=== PATIENT | male | born 1950 | race Caucasian/White ===

== ENCOUNTER → 2016-06-30 | Outpatient (CLI) | payer BC ==
[~2016-06-30] MED LIST: AMT25 PO; ANDG TOP; ASPI-232 PO; ATOR80TA PO; B-COTAB53 PO; CHOL20009 PO; COENCAP8 PO; DESO0.0516 TOP; DICL1GEL28 TD; GREEN TEA PO; INSPMPHMLG; LEVO1CAP6 PO; LISI-461 PO; MULT-884 PO; NXM/40 PO; OMEG10007 PO; SILD100T PO; [UNRECOGNIZED DRUG - CODE] PO; [UNRECOGNIZED DRUG - CODE] PO
[2016-06-30 15:45] LABS: ALT/SGPT 37 U/L (12-78); BLOOD UREA NITROGEN 18 mg/dl (7-18); BUN/CREATININE RATIO 13.5 (10-20); CALCIUM 8.9 mg/dl (8.5-10.1); CARBON DIOXIDE 28 mmol/L (21-32); CHLORIDE 105 mmol/L (98-107); GLUCOSE 79 mg/dl (70-99); POTASSIUM 3.9 mmol/L (3.5-5.1); SODIUM 141 mmol/L (136-145)
[2016-06-30 15:50] LABS: ALB/GLOB RATIO 1.2 (0.9-2); ALKALINE PHOSPHATASE 60 U/L (45-117); AST/SGOT 25 U/L (15-37)
[2016-07-01 06:24] LABS: ESTIMATED AVERAGE GLUCOSE 160 mg/dl; HA1C FLAG Normal (Normal)
--- NOTE | 2016-07-05 12:18 | CODING QUERY MEDICAL NECESSITY ---
SUPPORTING DIAGNOSIS NEEDED A supporting diagnosis is required for the test/procedure performed on this patient in order for us to be reimbursed by the patient's insurance. Please provide a supporting diagnosis for the following test/procedure listed below next to the test name along with your signature. *If there is no additional diagnosis for this patient that would support the following test/procedure please document that below next to the test/procedure. Test(s)/Procedure(s) that require a supporting diagnosis: * PSA DIAGNOSIS: * DOS: 06/30/16 Provider Signature: Date: Thank you Zully Rowe [employer] Once completed, please kindly fax back to [phone] For questions please call [phone]
== END | disposition home or self-care (01) ==
LOC: C.LAB1850 14:21
PROVIDERS: ATTEND Internal Medicine
DX: E29.1 Testicular hypofunction (principal); E10.65 Type 1 diabetes mellitus with hyperglycemia; E55.9 Vitamin D deficiency, unspecified; I10 Essential (primary) hypertension; N40.0 Benign prostatic hyperplasia without lower urinary tract symptoms

== ENCOUNTER → 2016-12-29 | Outpatient (CLI) | payer BC ==
[2016-12-29 15:54] LABS: BASO % 0.8 %; BASO ABS # 0.09 K/uL (0-0.2); COMPLETE YES; EOS % 2.4 %; HEMATOCRIT 41.4 % (42-52); IG% 0.2 %; LYMPH % 25.4 %; LYMPH ABS # 2.99 K/uL (1.2-3.4); MEAN CELL VOLUME 88.8 fL (80-100); MEAN CORPUSCULAR HGB CONC 33.8 g/dl (32-36); MEAN PLATELET VOLUME 10.3 fL (7.4-10.4); MONO % 7.7 %; NEUT % 63.5 %; PLATELET COUNT 240 K/uL (130-400); RED BLOOD COUNT 4.66 M/uL (4.7-6.1); WHITE BLOOD COUNT 11.75 K/uL (4.8-10.8)
[2016-12-29 16:32] LABS: ALT/SGPT 38 U/L (12-78); AST/SGOT 29 U/L (15-37); BLOOD UREA NITROGEN 23 mg/dl (7-18); BUN/CREATININE RATIO 16.1 (10-20); CARBON DIOXIDE 24 mmol/L (21-32); CHLORIDE 106 mmol/L (98-107); CHOLESTEROL 176 mg/dl (0-200); GLUCOSE 141 mg/dl (70-99); SODIUM 137 mmol/L (136-145)
[2016-12-29 16:42] LABS: ALB/GLOB RATIO 1.2 (0.9-2); ALKALINE PHOSPHATASE 57 U/L (45-117); CHOLESTEROL/HDL RATIO 3.7; HDL CHOLESTEROL 47 mg/dl; HEPATITIS B AB NEG; LDL CHOLESTEROL CALCULATED 98 mg/dl; TRIGLYCERIDES 157 mg/dl (0-150); VERY LOW DENSITY LIPOPROT CALC 31 mg/dl
[2016-12-29 18:01] LABS: RATIO 16.9 mcg/mg (0-30.0)
[2016-12-30 07:36] LABS: ESTIMATED AVERAGE GLUCOSE 183 mg/dl; HA1C FLAG Normal (Normal)
== END | disposition home or self-care (01) ==
LOC: C.LAB1850 15:00
PROVIDERS: ATTEND Nurse Practitioner Adult Health
DX: Z11.59 Encounter for screening for other viral diseases (principal); E10.49 Type 1 diabetes mellitus with other diabetic neurological complication; E78.5 Hyperlipidemia, unspecified

== ENCOUNTER → 2017-01-26 | Day surgery (SDC) | payer BC ==
[2017-01-14 08:06] VITALS: Ht 195.6 cm; Wt 115.0 kg
[~2017-01-26] VITALS: Ht 195.6 cm; Wt 115.0 kg
[~2017-01-26] MED LIST changes: +LIDOCAINE HCL 2% 2 ML VIAL (20MG/ML) ONE; +PROPOFOL IV EMULSION 10 MG/ML 20 ML VIAL IV ONE; +SODIUM CHLORIDE 0.9% 500ML 500 ML IV ONE
[2017-01-26 08:20] VITALS: TEMP 36.2
--- NOTE | 2017-01-26 08:27 | Endo History and Physical ---
History & Physical Date of Service: Jan 26, 2017. Chief Complaint: screening Referring Physician: Dr. Moctezuma History of Present Illness 66 yo CM who presents for screening colonoscopy. Past Medical History Diabetes, Reflux, High Cholesterol, Hypertension Past Surgical History Hx Cardiac Surgery: No Hx Internal Defibrillator: No Hx Pacemaker: No Hx Abdominal Surgery: No Hx of Implantable Prosthesis: No Hx Post-Op Nausea and Vomiting: No Hx Cancer Surgery: No Hx Thoracic Surgery: No Hx Orthopedic: Yes (RT KNEE SCOPE) Hx Urinary Tract Surgery: No Family History None Social History Smoking Status: Former Smoker Hx Substance Use: No Hx Alcohol Use: Yes (OCCASIONAL) Allergies Coded Allergies: No Known Allergies (Verified , 01/26/17) Current Medications Reported Home Medications Medications Dose Route/Sig Max Daily Dose Days Date Category Insulin Humalog Pump (Insulin Human Lispro) Pump 1 Ea N/A UD 01/14/16 Reported [Green Tea ] 1 Cap PO QAM 11/25/14 Reported Cla (Linoleic Acid-Troy Oil) 1 Cap Cap 1 Cap PO QAM 11/25/14 Reported Lisinopril 10 Mg Tab 10 Mg PO QAM 11/25/14 Reported Androgel Pump (Testosterone Propionate) 1 Box Gel 20.25 Mg TOP QAM 11/25/14 Reported Desonide 0.05 % Oin 1 Appln TOP DAILY PRN 11/25/14 Reported Voltaren 1% Top Gel (Diclofenac Sodium) Gel 1 Appln TD BID PRN 11/25/14 Reported Viagra (Sildenafil Citrate) 100 Mg Tab 100 Mg PO PRN 11/25/14 Reported Effie-3 (Fish Oil) 1 Ea Cap 1,000 Mg PO BID 11/25/14 Reported Lipitor (Atorvastatin Calcium) 80 Mg Tab 1 Tab PO HS 11/25/14 Reported Vitamin D (Cholecalciferol) 2,000 Unit Tab 2,000 Unit PO QAM 11/25/14 Reported Multi Vitamin Daily (Multiple Vitamin) 1 Tab Tab 1 Tab PO QAM 11/25/14 Reported L-Carnitine (Levocarnitine L-Tartrate) 500 Mg Cap 1 Tab PO QAM 11/25/14 Reported Coenzyme Q10 (Coenzyme D05-Jfvmapr E) 1 Cap Cap 1 Cap PO QAM 11/25/14 Reported Chromium Picolinate Forti (Misc Natural Products) 1 Tab Tab 1 Cap PO QAM 11/25/14 Reported B Complex (B-Complex W/ Folic Acid) 1 Tab Tab 1 Tab PO QAM 11/25/14 Reported Aspir-81 (Aspirin) 81 Mg Tab 1 Tab PO QAM 11/25/14 Reported Amitriptyline HCl 25 Mg Tab 25 Mg PO HS PRN 11/25/14 Reported Nexium (Esomeprazole Magnesium) 40 Mg Capcr 40 Mg PO QAM 11/25/14 Reported Vital Signs Weight (Kilograms): 115 Height (Feet): 6 Height (Inches): 5 Date Time Temp Pulse Resp B/P (MAP) Pulse Ox O2 Delivery O2 Flow Rate FiO2 01/26/17 08:20 36.2 83 20 143/63 (89) 97 Room Air Physical Exam General Appearance: WD/WN, no apparent distress Respiratory/Chest: Auscultation: breath sounds normal Cardiovascular: Heart Auscultation: RRR Abdomen: Bowel Sounds: normal Inspection & Palpation: soft, non-distended, no tenderness, guarding & rebound Assessment and Plan Assessment: 66 yo CM who presents for screening colonoscopy. Plan: Proceed with colonoscopy.
--- NOTE | 2017-01-26 08:56 | Discharge Instructions ---
Endoscopy Patient Instructions Date / Procedure(s) Performed Jan 26, 2017. Colonoscopy Allergy Information Coded Allergies: No Known Allergies (Verified , 01/26/17) Discharge Date / Findings Jan 26, 2017. Colon polyps Diverticulosis Internal hemorrhoids Medication Instructions Stopped Medication(s): took ASA yesterday OK to resume all medications today as prescribed Provider Instructions Activity Restrictions - No exercising or heavy lifting for 24 hours. - Do not drink alcohol the day of the procedure. - Do not drive a car or operate machinery until the day after the procedure. - Do not make any important decisions or sign important papers in 24 hours after the procedure. Following Day: - Return to full activity which may include returning to work/school. Diet Start your diet with liquids and light foods (jello, soup, juice, toast). Then eat your usual diet if not nauseated. Treatment For Common After Affects For mild abdominal pain, bloating, or excessive gas: - Rest - Eat lightly - Lie on right side Follow-Up Information Follow-up with Dr. Moctezuma as scheduled Anesthesia Information What You Should Know You have had a procedure that required some medicine to reduce anxiety and discomfort. This treatment is called moderate sedation. After receiving the treatment, you may be sleepy, but you will be able to breathe on your own. The effects of the treatment may last for several hours. Follow these instructions along with Activity/Diet recommendations noted above: * Do NOT do anything where dizziness or clumsiness would be dangerous. * Rest quietly at home today, then you can be up and about tomorrow. * Have a responsible person stay with you the rest of today. * You may have had an I.V. today. If so, you may take the dressing off later today. Recommendations Call your doctor if: * Trouble breathing * Continuous vomiting for more than 24 hours * Temperature above 101 degrees * Severe abdominal pain or bloating * Pain not relieved by pain medicine ordered * There is increased drainage or redness from any incision * A large amount of rectal bleeding greater than 2-3 tablespoons. (If you had a polyp/s removed or have hemorrhoids, a small amount of blood - from the rectum is to be expected.) * You have any unanswered questions or concerns. IN THE EVENT OF A SERIOUS EMERGENCY, GO TO THE NEAREST EMERGENCY ROOM Your discharge instructions were prepared by provider Florentin Franco. Patient Instructions Signature Page Angel Douglas Patient (or Guardian) Signature/Date: I have read and understand the instructions given to me by my caregivers. Caregiver/RN/Doctor Signature/Date: The above-named patient and/or guardian has received patient instructions on this date. + Original Patient Signature Page (only) stays with chart. Please make copy for patient.
--- NOTE | 2017-01-26 09:04 | GI REPORT ---
Procedure Date: 01/26/2017 8:30 AM Procedure: Colonoscopy Indications: Screening for colorectal malignant neoplasm Medicines: Monitored Anesthesia Care Complications: No immediate complications. Estimated Blood Loss: Estimated blood loss: none. Procedure: Pre-Anesthesia Assessment: - Prior to the procedure, a History and Physical was performed, and patient medications and allergies were reviewed. The patient's tolerance of previous anesthesia was also reviewed. The risks and benefits of the procedure and the sedation options and risks were discussed with the patient. All questions were answered, and informed consent was obtained. Prior Anticoagulants: The patient has taken aspirin, last dose was 1 day prior to procedure. ASA Grade Assessment: II - A patient with mild systemic disease. After reviewing the risks and benefits, the patient was deemed in satisfactory condition to undergo the procedure. After I obtained informed consent, the scope was passed under direct vision. Throughout the procedure, the patient's blood pressure, pulse, and oxygen saturations were monitored continuously. The On-site loaner was introduced through the anus and advanced to the terminal ileum. The colonoscopy was performed without difficulty. The patient tolerated the procedure well. The quality of the bowel preparation was good. The terminal ileum, ileocecal valve, appendiceal orifice, and rectum were photographed. Findings: Two sessile polyps were found in the sigmoid colon and in the transverse colon. The polyps were 4 to 6 mm in size. These polyps were removed with a cold snare. Resection and retrieval were complete. Multiple small-mouthed diverticula were found in the sigmoid colon. Non-bleeding internal hemorrhoids were found during retroflexion. The hemorrhoids were small. Impression: - Two 4 to 6 mm polyps in the sigmoid colon and in the transverse colon, removed with a cold snare. Resected and retrieved. - Diverticulosis in the sigmoid colon. - Non-bleeding internal hemorrhoids. Recommendation: - Resume previous diet. - Continue present medications. - Repeat colonoscopy for surveillance based on pathology results. - Return to primary care physician as previously scheduled. Florentin Franco, 01/26/2017 9:03:56 AM This report has been signed electronically. Note Initiated On: 01/26/2017 8:30 AM I attest to the content of the Intraoperative Record and orders documented therein, exceptions below
--- NOTE | 2017-01-26 09:12 | Anesthesiology Progress Note ---
Anesthesia Post Op Note Date & Time Jan 26, 2017 at 09:12 Vital Signs Pain Intensity: 0 Vital Signs Past 12 Hours Date Time Temp Pulse Resp B/P (MAP) Pulse Ox O2 Delivery O2 Flow Rate FiO2 01/26/17 09:05 82 24 99/64 (76) 97 Room Air 01/26/17 08:20 36.2 83 20 143/63 (89) 97 Room Air Notes Mental Status: alert / awake / arousable, participated in evaluation Pt Amnestic to Procedure: Yes Nausea / Vomiting: adequately controlled Pain: adequately controlled Airway Patency, RR, SpO2: stable & adequate BP & HR: stable & adequate Hydration State: stable & adequate Anesthetic Complications: no major complications apparent
[2017-01-26 09:31] VITALS: BP 116/77; PULSE 74; O2SAT 97
== END | disposition home or self-care (01) ==
LOC: C.GI 07:56
PROVIDERS: ATTEND Internal Medicine
DX: Z12.11 Encounter for screening for malignant neoplasm of colon (principal); D12.5 Benign neoplasm of sigmoid colon; D12.3 Benign neoplasm of transverse colon; K57.31 Diverticulosis of large intestine without perforation or abscess with bleeding; K64.8 Other hemorrhoids; E11.9 Type 2 diabetes mellitus without complications; K21.9 Gastro-esophageal reflux disease without esophagitis; E78.00 Pure hypercholesterolemia, unspecified; I10 Essential (primary) hypertension; Z87.891 Personal history of nicotine dependence; Z79.4 Long term (current) use of insulin

== ENCOUNTER → 2017-05-31 | Outpatient (CLI) | payer BC ==
[~2017-05-31] MED LIST changes: -LIDOCAINE HCL 2% 2 ML VIAL (20MG/ML) ONE; -PROPOFOL IV EMULSION 10 MG/ML 20 ML VIAL IV ONE; -SODIUM CHLORIDE 0.9% 500ML 500 ML IV ONE
[2017-05-31 12:12] LABS: BASO % 0.9 %; BASO ABS # 0.07 K/uL (0-0.2); EOS % 4.9 %; EOS ABS # 0.37 K/uL (0-0.5); HEMATOCRIT 42.2 % (42-52); HEMOGLOBIN 14.4 g/dL (14.0-18.0); IG# 0.01 K/uL (0.00-0.02); LYMPH % 42.4 %; LYMPH ABS # 3.18 K/uL (1.2-3.4); MEAN CELL VOLUME 90.2 fL (80-100); MEAN CORPUSCULAR HEMOGLOBIN 30.8 pg (25-34); MEAN CORPUSCULAR HGB CONC 34.1 g/dl (32-36); MEAN PLATELET VOLUME 10.2 fL (7.4-10.4); MONO % 7.9 %; MONO ABS # 0.59 K/uL (0.11-0.59); NEUT % 43.8 %; NEUT ABS # 3.28 K/uL (1.4-6.5); PLATELET COUNT 244 K/uL (130-400); RED CELL DISTRIBUTION WIDTH CV 12.8 % (11.5-14.5); RED CELL DISTRIBUTION WIDTH SD 41.6 fL (36.4-46.3)
[2017-05-31 12:26] LABS: HEMOGLOBIN A1C 7.6 % (4.5-5.6)
== END | disposition home or self-care (01) ==
LOC: C.LAB1850 11:24
PROVIDERS: ATTEND Urology
DX: Z12.5 Encounter for screening for malignant neoplasm of prostate (principal); D72.829 Elevated white blood cell count, unspecified; B19.10 Unspecified viral hepatitis B without hepatic coma; E78.5 Hyperlipidemia, unspecified; E10.49 Type 1 diabetes mellitus with other diabetic neurological complication; N52.9 Male erectile dysfunction, unspecified

== ENCOUNTER 2022-08-24 11:24 | Observation (INO) ==
--- NOTE | 2022-08-18 14:46 | Communication Note ---
Patient scheduled for Left Knee Open Quadricep Tendon Repair 08/24/[address] Kraft at [facility]. Received message from Reno Ardon (surgeon's office specialist) that patient unable to be seen at PAT due to transportation limitations in setting of injury/need for medical transport van at this time. She requests that after PAT RN phone interview and preop testing completed, we contact the patient to review any perioperative questions he might still have (regarding anesthesia/medication instructions) and if we feel anything further needed (i.e. clearances) from our perspective. Once chart formally reviewed preoperatively by PAT provider, will have patient contacted to discuss the above as per surgeon's office request.
--- NOTE | 2022-08-19 15:30 | Anesthesiology Consultation ---
Date of Service August 19, 2022 Assessment & Plan (1) Encounter for pre-operative examination: Chart Review Chart Review: Acceptable Risk for Surgery and Patient NOT seen in Pre Admission Testing - Check BSG AM DOS Pt requiring admission post operatively. Plan for recheck with COVID Garrett AM DOS due to possibility that patient may have a roommate. OR aware. Garrett order placed Per surgeon workload note 08/20/22= "Patient is best treated for this acute injury by 6 weeks, or the quad tendon retracts and compromises outcome. Should avoid extraordinary delays for exacerbations of chronic medical issues unless unsafe to proceed." -COVID screening: Per PAT nursing assessment on 08/19/22. Pt returned from [place] 08/12/22 (flew). No known COVID-19 positive contacts or current COVID-19 related symptoms. Travel screen negative. Patient vaccinated for Covid. At surgeon discretion if preop Covid testing being done. Pt last seen by PCP 08/23/22 (workload note sent re: Hgb A1C and elevated creat)= seen for preop clearance. Fell in [place] 07/25/22 and injured leg. Dx'ed with a ruptured quad tendon of the left knee and is scheduled for surgery on 08/24/2022. "Revised cardiac risk gzime-nlb-jodnm-class II risk. Consult endocrinology for instructions in regard to insulin pump. Patient is cleared for surgery." (Spoke with patient on 08/23/22- he followed up with endocrinology- plan is for patient to set his insulin pump at half of his basal rate during the fasting period prior to surgery) Pt seen by PCP 08/16/22= Lichen planus- continue with derm. Planter fasciitisdefers further treatment at this time. Type 1 diabeteson insulin pump. Continue to follow with endocrinology. GERD/Parker's esophagus EGD 2020- repeat in three years. EDtemporary. Managed by urology. Hypertension. Fast heart rateunclear reason. Currently asymptomatic. Cardiology evaluation. Lymphadenopathy/leukocytosisstable since exam November 2013. HLDon statin. Peripheral neuropathyon Cymbalta. CKDlikely secondary to diabetes and hypertensioncreatinine up to 1.6 in April. Nephrology evaluation due to CKD. Vitamin D deficiency on supplement. Right knee pain and instability. Follow-up with Ortho Seen by cardio 03/08/22= Patient seen for cardiology follow-up. Asymptomatic sinus tachycardia. No obvious etiology for this. Recent echocardiogram reviewed. Stress test without evidence of myocardial ischemia. Recent carotid and abdominal ultrasounds were unremarkable. Minimal stenosis of right external iliac artery. MICHAEL and TBI both legs normal. No evidence of arterial obstructive disease in his legs. BP adequately controlled. Dyslipidemiaon statin. No symptoms of any significant arrhythmia. No evidence of arrhythmia on recent stress test. We will start metoprolol ER 25 mgpatient tolerates low- dose well and his heart rate remains elevated would further increase that to 50 mg daily. Follow-up in 6 months History Surgery Operation Date: 08/24/22 13:30 Proposed Procedures p Left Knee Open Quadricep Tendon Repair - Rashad Kraft MD Height/Weight Height: 6 ft 5 in Weight: 117.027 kg Allergies Allergy/AdvReac Type Severity Reaction Status Date / Time No Known Allergies Allergy Verified 08/23/22 09:47 Medications Home Medications Medication Instructions Recorded Confirmed Last Taken aspirin 81 mg tablet,delayed 81 mg PO QAM 04/11/18 08/23/22 01/31/22 release cholecalciferol (vitamin D3) 50 2,000 unit PO QAM 04/11/18 08/23/22 01/31/22 mcg (2,000 unit) tablet (Vitamin D3) chromium picolinate 200 mcg tablet 200 mcg PO QAM 04/11/18 08/23/22 01/31/22 coenzyme Q10 100 mg capsule 100 mg PO QAM 04/11/18 08/23/22 01/31/22 desonide 0.05 % topical cream 1 applic topical BID PRN Rash 04/11/18 08/23/22 04/12/18 green tea leaf extract (Green Tea 1 cap PO QAM 04/11/18 08/23/22 01/31/22 capsule) insulin glargine 100 unit/mL 50 units subcut UD PRN in the 04/11/18 08/23/22 2 Years Ago subcutaneous solution (Lantus event of pump failure ~04/19/16 U-100 Insulin) levocarnitine 500 mg tablet 500 mg PO QAM 04/11/18 08/23/22 01/31/22 (L-Carnitine) multivitamin 1 tab PO QAM 04/11/18 08/23/22 01/31/22 safflower oil-linoleic acid, 1 cap PO QAM 04/11/18 08/23/22 01/31/22 conjugated 1,000 mg capsule linoleic acid, conjugated 600 mg 1 cap PO QAM 11/02/18 08/23/22 01/31/22 capsule vitamin B complex (B Complex 1 1 tab PO QAM 01/01/19 08/23/22 01/31/22 tablet) cyclobenzaprine 5 mg tablet 5 mg PO HS PRN muscle spasm #20 01/02/19 08/23/22 04/06/21 tabs omega 0-zeh-wyx-fish oil 1,000 mg 1 cap PO BID 02/13/19 08/23/22 01/31/22 (120 mg-180 mg) capsule (Fish Oil) insulin syringe-needle U-100 0.3 #10 ea 06/05/19 08/23/22 Unknown mL 30 gauge x 1/2" (BD Insulin Syringe Ultra-Fine) flash glucose scanning reader 06/02/21 08/23/22 Unknown (FreeStyle Tariq [employer]) flash glucose sensor (FreeStyle 06/02/21 08/23/22 Unknown Tariq 14 Day Sensor kit) sildenafil (pulm.hypertension) 20 20 - 100 mg PO ONCE PRN sexual 08/06/21 08/23/22 01/27/22 mg tablet activity #60 tabs rosuvastatin 40 mg tablet 40 mg PO QAM 90 days #90 tabs 11/12/21 08/23/22 01/31/22 lisinopril 20 mg tablet 20 mg PO QAM #90 tabs 03/29/22 08/23/22 Unknown Humalog U-100 Insulin 100 unit/mL See Rx Instructions .Route 04/21/22 08/23/22 Unknown subcutaneous solution (insulin .COMPLEX #170 mL lispro) esomeprazole magnesium 40 mg 40 mg PO BID #180 caps 05/05/22 08/23/22 Unknown capsule,delayed release tramadol 50 mg tablet 50 mg PO BID PRN pain #60 tabs 07/30/22 08/23/22 Unknown Wheeled Walker #1 ea 08/18/22 08/23/22 Unknown duloxetine 60 mg capsule,delayed 60 mg PO HS 08/19/22 08/23/22 Unknown release metoprolol succinate 25 mg 25 mg PO QPM 08/19/22 08/23/22 Unknown tablet,extended release 24 hr Past Medical History Medical History Barretts esophagus Repeat EGD due 2023 per records Benign prostate hyperplasia Diabetes mellitus type [address]; follows with Leila Payton Diabetic peripheral neuropathy Effusion, right knee GERD (gastroesophageal reflux disease) Hyperlipidemia Hypertension Insulin pump in place Knee pain, right Lumbar radiculopathy Medical marijuana use Polyneuropathy Right shoulder injury Right upper limb pain Rupture of left quadriceps muscle Stage 3a chronic kidney disease Strain of flexor tendon of wrist Uncontrolled type 1 diabetes mellitus with neurologic complication, with long- term current use of insulin Uncontrolled type 1 diabetes mellitus with retinopathy, with long-term current use of insulin Past Family History Family History Mother Family history of reaction to anesthesia nausea/vomiting and disoriented after anesthesia Grandfather (Paternal) Myocardial infarction Father COPD (chronic obstructive pulmonary disease) Glaucoma Grandfather (Maternal) Diabetes Denies family history of Ovarian cancer Prostate cancer Breast cancer Lung cancer Colorectal cancer Stroke Past Surgical History Surgical History History of bilateral cataract extraction History of colonoscopy last 01/2022 @ [facility] History of esophagogastroduodenoscopy (EGD) History of oral surgery dental implants Hx of arthroscopy of right knee Social History Smoking Status: Current some day smoker tobacco type: cigars Smoking cigarettes per day: smokes cigars intermittently Do You Dip or Chew Tobacco: No Smoking End Date: quit cigarettes 15 years ago Hx Alcohol Use: Yes Alcohol type: beer alcohol intake frequency: a few times a week Hx Substance Use: Yes (medical marijuana) substance use type: marijuana Last Used Substance: Unknown Last Used Substance Other:: pt states been 6 wks since used last Lab Results Anesthesia Preop Results Results Anesthesia Widget: WBC 13.07 K/ul (4.8-10.8) H 08/18/22 Hgb 13.6 g/dl (14.0-18.0) L 08/18/22 Hct 40.0 % (42.0-52.0) L 08/18/22 Plt 366 K/uL (130-400) 08/18/22 Na 137 mmol/L (136-145) 08/18/22 K 4.3 mmol/L (3.5-5.1) 08/18/22 Cl 104 mmol/L (98-107) 08/18/22 CO2 25 mmol/L (21-32) 08/18/22 BUN 33 mg/dl (6-23) H 08/18/22 Creat 1.72 mg/dl (0.6-1.4) H 08/18/22 Glucose Level 123 mg/dl (70-99(Fasting)) H 08/18/22 HA1c 8.0 % (4.5-5.6) H 08/18/22 Testing Laboratory Results Mild leukocytosis- surgeon's office made aware Elevated creatinine - sent workload message to PCP Electrocardiogram Date: 08/18/22 Findings: + NSR @ (94bpm ) Normal EKG per cardio Chest X-Ray Date: 08/18/22 FINDINGS: Suspected mild lung hyperexpansion. Lungs are clear. There is no pneumothorax or pleural effusion. Cardiac size is normal. Mediastinal contours are normal. There is no evidence for pulmonary edema. Old left-sided rib fractures are incidentally noted. IMPRESSION: No acute cardiopulmonary findings. Echocardiogram Date: 03/08/22 EF: 65-70% LV Function: normal RWMA: + none Other Findings: + LVH (mild/concentric ) and + diastolic dysfunction (Grade I ) Valvular Disease: + no significant valvular disease No significant change from ECHO 04/08/21 Stress Test Date: 03/10/22 Type: exercise Conclusions: 1. Maximum exercise stress test negative for chest pain. 2. Normal hemodynamic response to exercise. 3. Normal ECG response to exercise. No ECG evidence of stress-induced myocardial ischemia. 4. No exercise-induced arrhythmia. Other Testing Carotid duplex 02/18/22= No evidence of plaque or elevated velocities in the right and left internal carotid arteries. Antegrade flow bilateral vertebral arteries. Aorto iliac arterial duplex 02/18/2022 = no evidence of aortoiliac aneurysm. 30- 49% stenosis in right proximal EIA. Lower arterial duplex 02/18/2022 = no evidence of significant lower extremity arterial occlusive disease bilaterally
[~2022-08-24 11:24] MED LIST changes: -AMT25 PO; -ANDG TOP; -ASPI-232 PO; -ATOR80TA PO; -B-COTAB53 PO; -CHOL20009 PO; -COENCAP8 PO; -DESO0.0516 TOP; -DICL1GEL28 TD; -GREEN TEA PO; -INSPMPHMLG; -LEVO1CAP6 PO; -LISI-461 PO; +LR 15ML/HR IV SCH; +LR 60ML/HR IV SCH; -MULT-884 PO; -NXM/40 PO; -OMEG10007 PO; -SILD100T PO; -[UNRECOGNIZED DRUG - CODE] PO; -[UNRECOGNIZED DRUG - CODE] PO; +ceFAZolin 2000MG 2,000 MG/15 ML SYR IV SCH
[2022-08-24] MEDS ORDERED: BUPIVACAINE/EPINEPHRINE 0.25% 1:200,000 30 ML VIAL ONE (11:52)
[2022-08-24] MEDS ORDERED: ROPIVACAINE 0.5% 5 MG/ML 30 ML VIAL ONE (12:17)
[2022-08-24] MEDS ORDERED: fentaNYL citrate PF 100 MCG/2 ML VIAL ONE ×4 (13:15→18:08)
[2022-08-24] MEDS ORDERED: PROPOFOL IV EMULSION 10 MG/ML 20 ML VIAL IV ONE (13:15)
[2022-08-24] MEDS ORDERED: LIDOCAINE 2% 2 ML VIAL/AMP(20MG/ML) INFIL ONE (13:15)
[2022-08-24] MEDS ORDERED: MIDAZOLAM HCL 1 MG/ML 2ML VIAL ONE (13:15)
[2022-08-24] MEDS ORDERED: ROCURONIUM BROMIDE 10 MG/ML 5 ML VIAL IV ONE (14:26)
--- NOTE | 2022-08-24 14:26 | History & Physical Bridge Note ---
Date of Service August 24, 2022 History & Physical Bridge Note I have examined the patient, reviewed the History & Physical and in the interval since the performance of the History & Physical I have noted the following changes of clinical significance: no changes noted
[2022-08-24] MEDS ORDERED: HYDROmorphone INJ 2 MG/ML SYR/VIAL ONE ×2 (15:42→16:27)
[2022-08-24] MEDS ORDERED: ePHEDrine sulfate 50 MG/ML AMP ONE (15:47)
[2022-08-24] MEDS ORDERED: ONDANSETRON INJ 2 MG/ML 2 ML VIAL ONE (17:18)
--- NOTE | 2022-08-24 18:04 | Post Operative Brief Note ---
PG Immediate Post Op with CF Date of Surgery August 24, 2022 Pre & Post Diagnosis Operation Date: 08/24/22 13:30 Pre-Op Diagnosis: Rupture of Left Quadriceps Muscle Post-Op Diagnosis: Rupture of Left Quadriceps Muscle I identified the patient and participated in the time-out.: Yes Procedure Operation Date: 08/24/22 13:30 Actual Procedures p Left Knee Open Quadricep Tendon Repair(Left) - Rashad Kraft MD Surgeon Rashad Kraft MD Teleradiologist NONE Estimated Blood Loss 20 Findings Consistent with Post-Op Diagnosis
[2022-08-24] MEDS ORDERED: ePHEDrine sulfate 50 MG/ML AMP IV PRN (18:07)
[2022-08-24] MEDS ORDERED: ONDANSETRON INJ 2 MG/ML 2 ML VIAL IV PRN ×2 (18:07→18:35)
[2022-08-24] MEDS ORDERED: ATROPINE SULFATE 0.1 MG/ML 10ML SYR IV PRN (18:07)
[2022-08-24] MEDS: fentaNYL citrate PF 100 MCG/2 ML VIAL IV PRN ×4 (18:09→18:32)
--- NOTE | 2022-08-24 18:16 | Fluoroscopy Report ---
FL knee LT 1 or 2V CLINICAL HISTORY: LEFT KNEEstatus post surgery of the left knee COMPARISON STUDY: Head CT 07/26/2022 FLUOROSCOPY TIME: 5.4 seconds. FLUOROSCOPY IMAGES: 2 EXPOSURE DOSE: 0.29 mGy FINDINGS: There are 3 linear surgical device is projected over the long axis of the patella. Expected postoperative soft tissue swelling with deep tissue air. No acute fracture or unexpected opaque fore ign body identified. IMPRESSION: Fluoroscopic assistance as above. ACT 112: Negative or not required by law. Electronically signed by: Peterson Oliva M.D. 08/24/2022 6:15 PM
[2022-08-24] MEDS ORDERED: oxyCODONE HCL IR 5 MG TAB (IMMEDIATE RELEASE) PO PRN (18:35)
[2022-08-24] MEDS ORDERED: DESONIDE CR 15 GM TUBE EXT PRN (18:35)
[2022-08-24] MEDS ORDERED: ALUMINUM/MAGNESIUM SUSP 30 ML UDC PO PRN (18:35)
[2022-08-24] MEDS ORDERED: diphenhydrAMINE 50 MG/ML VIAL IV PRN (18:35)
[2022-08-24] MEDS ORDERED: HYDROmorphone INJ 0.5 MG/0.5 ML SYR IV PRN (18:35)
[2022-08-24] MEDS ORDERED: diphenhydrAMINE Capsule 25 MG CAP PO PRN (18:35)
[2022-08-24] MEDS ORDERED: MAGNESIUM HYDROXIDE SUSP 30 ML UDC PO PRN (18:35)
[2022-08-24] MEDS ORDERED: PHARMACY GLYCEMIC MGMT CONSULT PRN (18:35)
[2022-08-24] MEDS ORDERED: LANTUS PER UNIT CHARGE SQ PRN (18:35)
[2022-08-24] MEDS: HYDROmorphone INJ 1 MG/ML SYRINGE IV PRN ×2 (18:43→18:51)
[2022-08-24] MEDS ORDERED: HYDROmorphone INJ 1 MG/ML SYRINGE ONE (18:43)
--- NOTE | 2022-08-24 19:04 | Anesthesiology Progress Note ---
Date of Service August 24, 2022 Anesthesia Post Procedure Vital Signs Vital Signs: Temp Pulse Resp BP Pulse Ox O2 Del Method O2 Flow Rate 08/24/22 19:00 98 H 12 114/73 98 Room Air 08/24/22 18:50 100 H 12 116/79 93 Room Air 08/24/22 18:40 102 H 16 127/76 96 Room Air 08/24/22 18:30 97.2 F L 100 H 14 147/74 H 96 Room Air 08/24/22 18:10 106 H 12 114/77 99 Oxymask 6 08/24/22 18:20 103 H 18 129/81 96 Oxymask 3 08/24/22 18:00 105 H 12 127/77 98 Oxymask 6 08/24/22 17:50 102 H 16 126/72 100 Oxymask 6 08/24/22 17:43 97.2 F L 104 H 9 L 105/63 100 Oxymask 6 08/24/22 12:26 97.7 F 90 20 114/78 99 Room Air Pain Intensity Left Knee: Pain Intensity: 4 Transfer of Care Handoff Completed per policy Notes Mental Status: alert / awake / arousable and participated in evaluation Patient Amnestic to Procedure: Yes Nausea / Vomiting: adequately controlled Pain: adequately controlled and improving with treatment Airway Patency, RR, SpO2: stable & adequate BP & HR: stable & adequate Hydration State: stable & adequate Anesthetic Complications: no major complications apparent and Pt Satisfied with anesthetic care
[2022-08-24] MEDS ORDERED: DEXTROSE 50% 50 ML SYRINGE IV PRN (20:00)
[2022-08-24] MEDS ORDERED: GLUCOSE 10 TAB/TUBE PO PRN (20:00)
[2022-08-24] MEDS ORDERED: GLUCAGON FOR INJ 1 MG VIAL IM PRN (20:00)
[2022-08-24] MEDS ORDERED: CARBOHYDRATES FOR HYPOGLYCEMIA PO PRN (20:00)
[2022-08-24] MEDS ORDERED: GLUCOSE 40% GEL 15 GM TUBE PO PRN (20:00)
--- NOTE | 2022-08-24 20:17 | Operative Report ---
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 Significant tendinosis throughout the quadricep tendon. Direct repair achieved with fiber tape suture through 3 linear bone tunnels in the patella. With no significant tension to about 30 degrees of knee flexion. Specimens None Anesthesia Type General Regional Complications none Disposition Accompanied Patient To Recovery: No Disposition: Recovery Room Indications 71-year-old male sustained an acute injury to his knee about 3 weeks ago down in [place]. He was treated in urgent care center made weightbearing as tolerated due to no fractures. He received care locally with some therapy until arriving back in [place] for definitive management. He presented to clinic with an obvious quadricep disruption. He was counseled on the diagnosis, prognosis, and my recommendation to proceed with direct repair soon as possible. We reviewed the risks and benefits and alternatives. He was interested in proceeding. Informed consent was documented in the clinic. Description of Procedure On the day of surgery, the patient was greeted in the preoperative holding area. The informed consent was reviewed and confirmed by myself and the patient. The patient identified the surgical site and was marked by me. The patient was then turned over to anesthesia. Anesthesia performed a regional anesthetic block with excellent effect. Patient was then taken to the operating place upon the OR table and anesthesia was in duced. The airway was secured. A nonsterile tourniquet placed high in the thigh. 3 sheets were used for an ipsilateral hip bump. The limb was then prepped and draped in usual sterile fashion for knee surgery. Surgical timeout was called by the a auxiliary nurse and verified all present. Antibiotics been infused equipment available and functional. An Esmarch bandage was used to exsanguinate the extremity, and the tourniquet was inflated to 250 mmHg for a total of 109 minutes. A midline incision over the patella was made to provide access to the quadricep tendon. We also exposed the distal pole the patella. Medial lateral skin flaps were developed and Bovie electrocautery was used for hemostasis. The peritenon was excised over the quadricep tendon and the tendon stump was debrided. The superior pole of patella or the insertion site of the quadricep tendon was debrided of all soft tissue using curette and rongeur. We thoroughly irrigated the hematoma and thoroughly irrigated the joint. The patella was then exposed using a bump underneath the knee. A central drill pin was placed using a 2 mm drill from the superior pole to the inferior pole. Using this pin as a central axis guide, two additional tunnels were made using a 2 mm drill on the medial and lateral sides. The position and trajectories were verified using fluoroscopy in the AP and lateral views. The [employer] suture passer was used to pass 0 silk suture for later shuttling of the repair stitches. The quad tendon was captured with 2 Allis clamps. And then whipstitches were performed with running locking fiber tape suture for 2 cores on the medial lateral aspect resulting in 4 fiber tape tails. The fiber tape tails were then passed down through the patella bone tunnels. The central tunnel contained the 2 medial tails. The far medial and lateral single fiber tape suture was then passed through the respective tunnels. The knee was placed in full extension and the tendon was then reduced forcefully using the tension on the fiber tape tails. A firm knot was tied after passing the tails to the medial and lateral aspect outside the patellar tendon distally. Firm knots were tied. We then thoroughly irrigated the soft tissues. #2 FiberWire suture was used on the medial and lateral retinacular repairs which extended back to the midline. Closure consisted of #1 Vicryl in the deep peritenon layer to cover the exposed tendon. Portions of the prepatellar bursa were then closed over the suture, where possible. 0 Vicryl suture was used in the deep subcuticular and fascial layers. The skin was approximated using 2-0 Vicryl. Final subcuticular closure was accomplished using wendy. The wound was dressed with the jumpstart dressing from the fiber tape kit followed by sterile gauze, ABD, and web roll. An Bret wrap was placed from toes to thigh. The limb was placed in a standard postoperative range of motion brace locked in full extension, set for a lockout of 30 degrees flexion. Patient tolerated seizure well, was extubated the operative without complication, and was transported to the PACU in stable condition. Disposition: Patient will remain in the locked range of motion brace in full extension. He can weight-bear as tolerated with his brace in place. Routine pain management will be prescribed. DVT prophylaxis will consist of early ambulation and oral aspirin 325 mg daily. He will be admitted observation until PT/OT can evaluate his ability to ambulate and perform ADLs at home. I attest to the content of the Intraoperative Record and any orders documented therein. Any exceptions are noted below.
--- NOTE | 2022-08-24 20:32 | Procedure Note ---
Procedure Note Date of Service August 24, 2022 Note Quadriceps Tendon Repair Rehabilitation Guide Phase 1 (0 6 weeks): PROTECTION PHASE WBing in full extension with brace locked. ROM: Supported Active flexion to comfortable limit, and Passive Extension only. 0-30 (week 1-2), 0-60 (week 3-4), 0-90 (week 5-6). No passive flexion, only gentle supported active flexion within limits. Straight leg raise in brace OK when comfort allows. Quad sets OK. Assist device (crutches/walker as needed) Focus on gluteal and core strength. Phase 2 (6 12 weeks): MOTION JAIN, GAIT TRAINING WBing with brace open 0 30 degrees. ROM exercises can advance in comfortable range. No passive stretch of extensor mechanism active flexion/gravity assist/heel slides. Assist device (crutches/walker as needed). Phase 3 (12+ weeks): STRENGTH JAIN Advance WBing available in available comfortable range. Brace lockout at limits if needed. Continue ROM exercises and advance as pain allows. No passive stretch of extensor mechanism active flexion/gravity assist/heel slides. Assist device (crutches/walker as needed) Coding
[2022-08-24] MEDS ORDERED: INSULIN ASPART 100 UNITS/ML VIAL SC PRN (21:00)
[2022-08-24] MEDS: ACETAMINOPHEN 500 MG TAB PO SCH (21:10)
[2022-08-24] MEDS: oxyCODONE HCL IR 5 MG TAB (IMMEDIATE RELEASE) PO PRN (21:11)
[2022-08-24] MEDS: OMEGA-3 (PURIFIED FISH OIL) 1 GM CAP PO SCH (21:12)
[2022-08-24] MEDS: DULoxetine HCL 60 MG CAP PO SCH (21:12)
[2022-08-24] MEDS: DOCUSATE SODIUM 100 MG CAP PO SCH (21:12)
[2022-08-24] MEDS: ASPIRIN 325 MG ECTAB PO SCH (21:12)
[2022-08-24] MEDS: METOPROLOL SUCC 25MG EXT REL TAB PO SCH (21:13)
[2022-08-24] MEDS: PANTOprazole 40 MG TAB PO SCH (21:13)
[2022-08-24] MEDS: INSULIN, Rapid-Acting PUMP SCH (21:13)
[2022-08-24] MEDS: ceFAZolin 2000MG 2,000 MG/15 ML SYR IV SCH (23:09)
[2022-08-24] MEDS: HYDROmorphone INJ 0.5 MG/0.5 ML SYR IV PRN (23:09)
[2022-08-25] MEDS: oxyCODONE HCL IR 5 MG TAB (IMMEDIATE RELEASE) PO PRN ×4 (01:17→19:34)
[2022-08-25] MEDS: ACETAMINOPHEN 500 MG TAB PO SCH ×3 (04:15→19:34)
[2022-08-25] MEDS: HYDROmorphone INJ 0.5 MG/0.5 ML SYR IV PRN ×3 (04:16→21:34)
[2022-08-25] MEDS: ceFAZolin 2000MG 2,000 MG/15 ML SYR IV SCH (06:26)
[2022-08-25] MEDS: CHOLECALCIFEROL 1,000 UNITS 25 MCG TAB PO SCH (07:47)
[2022-08-25] MEDS: lisinopril 20 MG TAB PO SCH (07:47)
[2022-08-25] MEDS: MULTIVITAMIN TAB PO SCH (07:47)
[2022-08-25] MEDS: VITAMIN B COMPLEX TAB PO SCH (07:47)
[2022-08-25] MEDS: ROSUVASTATIN CALCIUM 20 MG TAB PO SCH (07:47)
[2022-08-25] MEDS: PANTOprazole 40 MG TAB PO SCH ×2 (07:47→19:39)
[2022-08-25] MEDS: ASPIRIN 325 MG ECTAB PO SCH ×2 (07:48→19:35)
[2022-08-25] MEDS: DOCUSATE SODIUM 100 MG CAP PO SCH ×2 (07:48→19:36)
[2022-08-25] MEDS: OMEGA-3 (PURIFIED FISH OIL) 1 GM CAP PO SCH ×2 (07:48→19:36)
--- NOTE | 2022-08-25 08:03 | Orthopedic Progress Note ---
Date of Service August 25, 2022 Assessment & Plan (1) Ruptured, tendon, quadriceps: (2) History of left knee surgery: Plan POD1 open quad repair - PT/OT today: See procedure note for rehab protocol. WBAT with knee locked in extension. Begin gentle ROM 0-30 per protocol. - DVT ppx: bid ASA - Pain: taper parenteral to outpatient oral oxycodone - Abx: Discontinue 24h periop upon discharge Dispo: Will place discharge order pending pain control and evals per PT/OT. Subjective Painful over night. Requiring IV dilaudid at times. Understands plan of day. Review of Systems All systems reviewed & are unremarkable except as noted in HPI & below. Physical Exam RLE: dressing c/d/i. DNVI. Brace well fit. Constitutional WD/WN, vitals as above no acute distress and not intoxicated appearing Respiratory normal respiratory effort; no labored breathing Cardiovascular Extremities: normal capillary refill Results & Data Results & Data Laboratory Results . Diagnostic Findings . PG Care Time/CCT Total # of Minutes Spent Total Time Spent with Patient: Total time spent is greater than 50% in coordination of care (as documented) at patient's floor/unit and/or counseling patient: Coding Level of Care Code 08997 Post Operative Follow-Up Diagnoses Ruptured, tendon, quadriceps S76.119A History of left knee surgery Z98.890
[2022-08-25] MEDS: INSULIN, Rapid-Acting PUMP SCH ×4 (08:29→21:28)
[2022-08-25] MEDS ORDERED: GREEN TEA LEAF EXTRACT PO SCH (09:00)
[2022-08-25] MEDS ORDERED: [UNRECOGNIZED DRUG - OTHER] PO SCH (09:00)
[2022-08-25] MEDS ORDERED: [UNRECOGNIZED DRUG - MIXTURE] PO SCH (09:00)
[2022-08-25] MEDS ORDERED: NON-FORMULARY MEDICATION (Chromium Picolinate 200 mcg Tablet) PO SCH (09:00)
[2022-08-25] MEDS ORDERED: NON-FORMULARY MEDICATION (Coenzyme Q10 100 mg Capsule) PO SCH (09:00)
[2022-08-25] MEDS ORDERED: LEVOCARNITINE 500 MG PO SCH (09:00)
[2022-08-25] MEDS: DULoxetine HCL 60 MG CAP PO SCH (19:36)
[2022-08-25] MEDS: METOPROLOL SUCC 25MG EXT REL TAB PO SCH (19:37)
[2022-08-26] MEDS: ACETAMINOPHEN 500 MG TAB PO SCH ×2 (03:15→12:34)
[2022-08-26] MEDS: oxyCODONE HCL IR 5 MG TAB (IMMEDIATE RELEASE) PO PRN ×3 (03:18→12:33)
[2022-08-26] MEDS: lisinopril 20 MG TAB PO SCH (07:23)
[2022-08-26] MEDS: DOCUSATE SODIUM 100 MG CAP PO SCH (07:23)
[2022-08-26] MEDS: ROSUVASTATIN CALCIUM 20 MG TAB PO SCH (07:23)
[2022-08-26] MEDS: PANTOprazole 40 MG TAB PO SCH (07:23)
[2022-08-26] MEDS: OMEGA-3 (PURIFIED FISH OIL) 1 GM CAP PO SCH (07:24)
[2022-08-26] MEDS: ASPIRIN 325 MG ECTAB PO SCH (07:24)
[2022-08-26] MEDS: MULTIVITAMIN TAB PO SCH (07:24)
[2022-08-26] MEDS: VITAMIN B COMPLEX TAB PO SCH (07:24)
[2022-08-26] MEDS: CHOLECALCIFEROL 1,000 UNITS 25 MCG TAB PO SCH (07:24)
[2022-08-26] MEDS: INSULIN, Rapid-Acting PUMP SCH ×2 (08:58→12:27)
--- NOTE | 2022-08-26 11:33 | Orthopedic Progress Note ---
Date of Service August 26, 2022 Assessment & Plan (1) History of left knee surgery: (2) Ruptured, tendon, quadriceps: Plan POD2 open quad repair - PT/OT today: See procedure note for rehab protocol. WBAT with knee locked in extension. Begin gentle ROM 0-30 per protocol. - DVT ppx: bid ASA Dispo: Will place discharge order pending pain control and evals per PT/OT. Subjective Pain somewhat better. Feels encouraged to perform with PT today. Hopes to go home. Review of Systems All systems reviewed & are unremarkable except as noted in HPI & below. Physical Exam LLE: dressing c/d/i. Brace well fit. Compartments soft. DNVI Constitutional WD/WN, vitals as above no acute distress and not intoxicated appearing Respiratory normal respiratory effort; no labored breathing Cardiovascular Extremities: normal capillary refill Results & Data Results & Data Laboratory Results Diagnostic Findings . PG Care Time/CCT Total # of Minutes Spent Total Time Spent with Patient: Total time spent is greater than 50% in coordination of care (as documented) at patient's floor/unit and/or counseling patient: Coding Level of Care Code 48403 Post Operative Follow-Up Diagnoses History of left knee surgery Z98.890 Ruptured, tendon, quadriceps S76.119A
--- NOTE | 2022-08-29 09:27 | Discharge Summary ---
Date of Service August 29, 2022 Admission HPI (Per Admitting) 71-year-old male with history of diabetes type 1, lumbar radiculopathy, coronary artery disease admitted postoperatively following left open quadricep tendon repair for acute injury that occurred 2 weeks ago. Principal Diagnosis Same as "Discharge Diagnosis" noted below under Discharge Instructions. Discharge Exam LLE: dressing c/d/i. Brace well fit. Compartments soft. DNVI Discharge Data Procedures Performed Operation Date: 08/24/22 13:30 Actual Procedures p Left Knee Open Quadricep Tendon Repair(Left) - Rashad Kraft MD Ordered Studies 08/24/22 05:00 US - OR guided needle placemen Routine 08/24/22 13:30 FL knee LT 1 or 2V Routine Hospital Course (1) History of left knee surgery: Admitted postoperatively for pain management and mobilization with PT/OT. Remain inpatient until parenteral pain meds had been weaned to an oral regimen. He is evaluated by OT and PT and found to need further inpatient rehab. On postoperative day 2, he was found stable for transfer to home with visiting services. PG Care Time/CCT Total # of Minutes Spent Total Time Spent with Patient: Total time spent is greater than 50% in coordination of care (as documented) at patient's floor/unit and/or counseling patient: Discharge Plan Discharge Items Patient Disposition: Home - Self-Care Reason For Visit: LEFT QUADRICEP TENDON RUPTURE REPAIR Discharge Diagnosis: Same Activity: Per Instructions section Non-emergency contact: Surgeon Call non-emergency contact if: your pain is not controlled, your temperature is above 101 and your wound has increased drainage Follow-up/Referrals: Anahy Quinones MD [Primary Care Provider] - Rashad Kraft MD [Surgeon] - Diet: Carb Consistent or DM2 Addtl Attending Provider Instructions: Rashad Kraft M.D. [facility] Orthopedic Surgery [address] [facility], [place] [address] POSTOPERATIVE INSTRUCTIONS QUADRICEP TENDON OPEN REPAIR BRACE: Keep the range of motion brace locked in place unless the limb is fully supported in a resting position. Always wear your brace locked in extension when walking, standing, or transferring. You may open your brace for careful hygiene and ROM exercises with physical therapy with the leg supported in full extension. The brace can be used to protect motion. Unlock the ROM brace with the 2 red buttons on either side of the knee for ROM exercises. Lock again in full extension to get up and walk. Continue to wear the brace until further instructi ons at your post-op appointment with Ortho. MOTION: You always want to be sure to get the knee completely straight back of knee towards the bed. 0-30 degrees: Often used to protect the tendon repair. The brace will be set to stop at 30 when unlocked. Do not forcefully kick the knee straight, rather slide the heel down the bed to achieve full extension. Go over this with your therapist. WEIGHTBEARING: Weightbearing as tolerated means you can walk on your leg as your pain allows. Use your crutches or a walker for support. Always wear your brace when walking or standing. Gradually return to full weightbearing. You may discontinue crutches when you can safely walk without a limp. ACTIVITY: Please perform ROM (Range of Motion) exercises at least three times per day: 1. Ankle plantarflexion (gas pedal down) and dorsiflexion (pull foot up) 2. Toe flexion/extension wiggle toes 3. Straight leg raises hold your quads tight, lift your heel off the bed 12-15 inches while keeping the knee straight. Repeat. 4. Knee flexion/extension lie with leg flat, drag heel up the bed towards your buttocks, slowly return to flat position, try to get your leg c ompletely straight (try to touch the back of your knee to the bed) WOUND CARE: Leave the dressing in place and keep the area clean and dry. After 3 days, you may remove your dressing. DO NOT REMOVE ANY SUTURES. DO NOT REMOVE THE PAPER TAPE STRIPS THAT ARE CROSSING YOUR INCISION THEY WILL FALL OFF GRADUALLY IN 2-3 WEEKS. After removing your dressing, you may begin to shower. Do not soak the incision. Allow gentle soap and water to run over the wound(s) and pat dry. Please cover the incision(s) with a clean, dry dressing, as needed. Do not use any ointments or topical medications unless directed by your surgeon. Do not submerse the incisions in water no pools, oceans, lakes, jacuzzis, bathtubs, etc for at least 3 weeks. PAIN CONTROL If you had an ANESTHETIC BLOCK, the effects will wear off in 6-12 hours. When you feel sensation returning, be ready with a pain medication. You may experience rebound pain for a few hours before pain subsides. Stay ahead of the pain with your medications. Elevation is your best friend. Elevate the affected extremity above the level of your heart. Swelling is simply fluid. Elevation will allow the fluid to run down hill, reduce swelling, and decrease pain. The affected extremity should be continuously elevated for the first 2-3 days, with the exception of bathroom, hygiene, etc. You may be prone to swelling for several weeks, or until you return to normal function with your leg. Use ice (or cryocuff if you have one). Use for 30 minutes per hour. Do not leave in place longer than 30 minutes, especially when your block is in effect, to prevent frostbite or thermal injury. Medications: 1. Oxycodone (OxyIR) 1-2 tablet(s) orally every 4 hours for pain as needed. Use with Tylenol. Begin tapering OxyIR as soon as possible: reduce from 2 to 1 pills per dose, then spread out the doses over greater time intervals, then try to use only for therapy or for comfort while sleeping. Continue to use regular Tylenol until pain subsides. 2. Tylenol (325mg): 3 tablets every 8 hours orally. Regular dosing of Tylenol is an important part of your baseline pain control. Do not taper Tylenol until you have successfully tapered off of regular OxyIR. Do not take more than 3000mg of Tylenol per day. 3. Zofran 1 tablet orally every 6 hours as needed for nausea related to anesthesia, pain, and narcotic medications CONSTIPATION: Narcotic pain medications can slow down your digestive track, leading to constipation. Stay hydrated. While taking narcotics, the use of stool softeners is recommended. Two over the counter options are: 1. Colace (100mg): take 1-2 tabs twice daily to avoid constipation from OxyIR or other narcotics. 2. Miralax 1 tablespoon in a glass of water 2 times daily until normal bowel movements FOLLOWUP: 1. Ortho Clinic: You should be seen in 10-14 days. Please call immediately to schedule if you do not have an appointment. 2. PHYSICAL THERAPY: A consult has been placed specifically for your surgery. Please call the physical therapist soon to schedule an appointment. It is OK to be seen by your therapist before the ortho clinic followup. WHEN TO CALL. If you develop any of the following symptoms, please contact the Orthopedic Clinic at [phone]: Temperature greater than 100.5 taken twice, difficulty breathing, bleeding, fever and chills, increased pain unrelieved by pain meds, uncomfortable cast or splint, or any other concerns. Addtl Stem Shaper Provider Instructions: Rashad Kraft MD FAAOS FANTASMA [facility] Orthopedic Surgery and Sports Medicine [address] [facility], [place] [address] Quadriceps Tendon Repair Rehabilitation Guide Phase 1 (0 6 weeks): PROTECTION PHASE WBing in full extension with brace locked. ROM: Supported Active flexion to comfortable limit, and Passive Extension only. 0-30 (week 1-2), 0-60 (week 3-4), 0-90 (week 5-6). No passive flexion, only gentle supported active flexion within limits. Straight leg raise in brace OK when comfort allows. Quad sets OK. Assist device (crutches/walker as needed) Focus on gluteal and core strength. Phase 2 (6 12 weeks): MOTION CONGREGATION, GAIT TRAINING WBing with brace open 0 30 degrees. ROM exercises can advance in comfortable range. No passive stretch of extensor mechanism active flexion/gravity assist/heel slides. Assist device (crutches/walker as needed). Phase 3 (12+ weeks): STRENGTH CONGREGATION Advance WBing available in available comfortable range. Brace lockout at limits if needed. Continue ROM exercises and advance as pain allows. No passive stretch of extensor mechanism active flexion/gravity assist/heel slides. Assist device (crutches/walker as needed) Pending Studies at Discharge: No Stand-Alone Forms: My [facility] [place], Smoking Cessation Medications and DC Order Prescriptions: New aspirin [Ecotrin] 325 mg Tablet,Delayed Release (Dr/Ec) 325 mg PO BID Qty: 90 0RF oxycodone 5 mg tablet 5 - 10 mg PO Q4H MDD 6 tablets PRN (Reason: pain) Qty: 20 0RF Continued sildenafil (pulm.hypertension) 20 mg tablet 20 - 100 mg PO ONCE PRN (Reason: sexual activity) Qty: 60 5RF rosuvastatin 40 mg tablet 40 mg PO QAM 90 Days Qty: 90 3RF lisinopril 20 mg tablet 20 mg PO QAM Qty: 90 3RF insulin lispro [Humalog U-100 Insulin] 100 unit/mL solution See Rx Instructions .ROUTE .COMPLEX Qty: 170 3RF Dose Instruction: For use with insulin pump- up to 200u TDD ; Rx Instructions: For use with insulin pump- up to 180u TDD ; esomeprazole magnesium 40 mg capsule,delayed release(DR/EC) 40 mg PO BID Qty: 180 3RF tramadol 50 mg tablet 50 mg PO BID PRN (Reason: pain) Qty: 60 0RF linoleic acid, conjugated 600 mg capsule 1 cap PO QAM vitamin B complex [B Complex 1] tablet 1 tab PO QAM (DME) insulin syringe-needle U-100 [BD Insulin Syringe Ultra-Fine] 0.3 mL 30 gauge x 1/2" syringe See Dose Instructions .ROUTE .MEDSUPPLY Qty: 10 Rx Instructions: In case of pump failure (DME) Wheeled Walker Misc See Rx Instructions .Route Qty: 1 0RF Rx Instructions: As directed (DME) FreeStyle Tariq 14 Day Sensor Kit See Rx Instructions .Route Rx Instructions: As directed (DME) FreeStyle Tariq 14 Day [place] Misc See Rx Instructions .Route Rx Instructions: As directed multivitamin Tablet 1 tab PO QAM desonide 0.05 % Cream 1 applic TOPICAL BID PRN (Reason: Rash) insulin glargine [Lantus U-100 Insulin] 100 unit/mL Solution 50 units subcut UD PRN (Reason: in the event of pump failure) Patient Comments: pt only takes when his insulin pump fails. aspirin 81 mg Tablet,Delayed Release (Dr/Ec) 81 mg PO QAM L-Carnitine 500 mg Tablet 500 mg PO QAM chromium picolinate 200 mcg Tablet 200 mcg PO QAM coenzyme Q10 100 mg Capsule 100 mg PO QAM Green Tea Capsule 1 cap PO QAM cholecalciferol (vitamin D3) [Vitamin D3] 2,000 unit Tablet 2,000 unit PO QAM safflower oil-linoleic acid,co 1,000 mg Capsule 1 cap PO QAM omega 2-cyy-jko-fish oil [Fish Oil] 1,000 mg (120 mg-180 mg) capsule 1 cap PO BID metoprolol succinate 25 mg tablet extended release 24 hr 25 mg PO QPM duloxetine 60 mg capsule,delayed release(DR/EC) 60 mg PO HS Discharge Orders: Discharge Order (Routine); Ordered 08/25/22 Ordered By: Rashad Hayward/Other Patient Handouts: Managing Type 1 Diabetes, Special Foot Care for Diabetes Admission Data Admit Date/Time: 08/24/22 18:03 Attending Provider: Rashad Kraft Admit Provider: Rashad Kraft Primary Care Provider: Anahy Quinones V. Other Interventions: Discharge Summary Assessment (RN) Last Done: 08/26/22 10:50
== END 2022-08-26 14:15 | disposition home or self-care (01) ==
LOC: 3E 11:24 → ASU 11:24